=== PATIENT | female | born 1985 | race Asian ===

== ENCOUNTER 2017-09-21 19:57 | Emergency (ER) | payer OTHER ==
[~2017-09-21] VITALS: Ht 170.2 cm; Wt 75.4 kg
--- NOTE | 2017-09-21 20:12 | ED.ADGEN ---
Adult General Chief Complaint Chief Complaint ".. I fell yesterday... it was about 1130.. I was walking [place] my [employer]le.. and I fell on my Lt. side.. it is still sore.. and hurts to move ... or take deep breath.. and I scrapped the Lt knee. .." HPI HPI Patient is a 32 year old female who presents with above hx and complaints of abrasion to Lt knee and Lt chest wall pain after a fall yesterday night. Pt. reports pain is still present with deep breaths or movement and palpation. Patient denies any other injury except for the abrasion on left knee. Patient does not remember her last tetanus. Patient normally healthy. Patient follows at [facility] for care. Distal neurovascular intact. Patient able to do straight leg lift. Ligaments. Be stable and left knee. A shunt has point tenderness of left chest wall anterior axillary line. Is reproducible palpation and side to side pressure as well as anterior to posterior pressure. No spleno tenderness. No spinal tenderness. Patient has mild left trapezius tenderness. But no cervical midline tenderness. DTRs +2 patella and brachial. Review of Systems Review of Systems Constitutional: Denies fever or chills [] Eyes: Denies change in visual acuity, redness, or eye pain [] HENT: Denies nasal congestion or sore throat [] Respiratory: Denies cough or shortness of breath []complaints of chest wall pain Cardiovascular: No additional information not addressed in HPI [] GI: Denies abdominal pain, nausea, vomiting, bloody stools or diarrhea [] : Denies dysuria or hematuria [] Musculoskeletal: Denies back pain or joint pain [] Integument: Denies rash or skin lesions []complaints of contusion abrasion left knee Neurologic: Denies headache, focal weakness or sensory changes [] Endocrine: Denies polyuria or polydipsia [] All other systems were reviewed and found to be within normal limits, except as documented in this note. Family History Family History Noncontributory Current Medications Current Medications Current Medications Medications (Trade) Dose Ordered Sig/Delfina Start Time Stop Time Status Last Admin Dose Admin Cyclobenzaprine HCl (Starter Pack - Flexeril 10mg) 1 startpack 1X ONCE 09/21/17 22:30 09/21/17 22:33 DC 09/21/17 21:15 1 STARTPACK Ibuprofen (Motrin) 600 mg STK-MED ONCE 09/21/17 20:40 09/21/17 20:42 DC Tetanus/ Diphtheria Toxoids Adsorbed (Tenivac Vial) 0.5 ml ONCE ONCE 09/21/17 21:00 09/21/17 21:01 DC 09/21/17 20:52 0.5 ML Allergies Allergies Allergies Coded Allergies Type Severity Reaction Last Updated Verified No Known Drug Allergies 09/21/17 No Physical Exam Physical Exam Constitutional: Well developed, well nourished, mild distress, non-toxic appearance. [] HENT: Normocephalic, atraumatic, bilateral external ears normal, oropharynx moist, no oral exudates, nose normal. [] Eyes: PERRLA, EOMI, conjunctiva normal, no discharge. [] Neck: Normal range of motion, no tenderness, supple, no stridor. [] Cardiovascular:Heart rate regular rhythm, no murmur [] Lungs & Thorax: Bilateral breath sounds clear to auscultation []chest wall tenderness as per history of present illness Abdomen: Bowel sounds normal, soft, no tenderness, no masses, no pulsatile masses. [] Skin: Warm, dry, no erythema, no rash. [] Back: No tenderness, no CVA tenderness. [] Extremities: No tenderness, no cyanosis, no clubbing, ROM intact, no edema. [ Except ]Knee tenderness as per history of present illness Neurologic: Alert and oriented X 3, normal motor function, normal sensory function, no focal deficits noted. [] Psychologic: Affect normal, judgement normal, mood normal. [] Current Patient Data Vital Signs Vital Signs Date Time Temp Pulse Resp B/P (MAP) Pulse Ox O2 Delivery O2 Flow Rate FiO2 09/21/17 21:30 66 18 125/90 (102) 99 Room Air 09/21/17 20:00 99.1 Lab Results Laboratory Tests Test 09/21/17 19:36 POC Urine HCG, Qualitative hcg negative (Negative) EKG EKG [] Radiology/Procedures Radiology/Procedures My interpretation chest x-ray shows no acute cardiopulmonary findings.[] Course & Med Decision Making Course & Med Decision Making Pertinent Labs and Imaging studies reviewed. (See chart for details). She apply Polysporin to left knee abrasion 4 times a day until healed. Patient to take Tylenol and ibuprofen for pain. Patient follow-up primary care. Patient return of any concerns. [] Final Impression Final Impression 1. Chest Wall Pain 2. Contusions and Abrasions 3. Muscle Strain Cervical and Thoracic[] Dragon Disclaimer Dragon Disclaimer This electronic medical record was generated, in whole or in part, using a voice recognition dictation system. NIDHI KAY MD Sep 21, 2017 20:12
[2017-09-21] MEDS ORDERED: ACET500T68 PO (20:30)
[2017-09-21] MEDS ORDERED: IBUP800T19 PO (20:30)
[2017-09-21] MEDS ORDERED: CYCL5TAB PO (20:30)
[2017-09-21] MEDS ORDERED: HYDR-79 PO (20:30)
[2017-09-21] MEDS ORDERED: IBUPROFEN 600 MG TABLET. PO ONE ×2 (20:40→21:00)
--- NOTE | 2017-09-21 20:56 | RAD ---
EXAM: Chest, 2 views. HISTORY: Fall. COMPARISON: None. FINDINGS: Frontal and lateral views of the chest are obtained. There is no infiltrate, pleural effusion or pneumothorax. The heart is normal in size. IMPRESSION: No acute pulmonary finding. Electronically signed by: Mikala Ribera MD (09/21/2017 8:52 PM) [id number]
[2017-09-21] MEDS ORDERED: TETANUS AND DIPHTHERIA TOX/PF 0.5 ML VIAL. VAX IM ONE (21:00)
[2017-09-21] MEDS ORDERED: CYCLOBENZAPRINE 10MG 4TABLET STARTPACK PO ONE ×3 (21:15→22:30)
[2017-09-21 21:30] VITALS: BP 125/90
== END 2017-09-21 21:17 | disposition home or self-care (01) ==
LOC: ER 19:57
DX: S80.02XA Contusion of left knee, initial encounter (principal); S16.1XXA Strain of muscle, fascia and tendon at neck level, initial encounter; S29.012A Strain of muscle and tendon of back wall of thorax, initial encounter; R07.89 Other chest pain; W19.XXXA Unspecified fall, initial encounter; Y93.01 Activity, walking, marching and hiking; Y99.8 Other external cause status; Y92.89 Other specified places as the place of occurrence of the external cause
CPT/HCPCS: 71046; 81025; 90471; 90714; 99284-25